=== PATIENT | male | born 2000 | race Caucasian/White ===

== ENCOUNTER 2018-10-26 05:17 | Emergency (ER) | payer OTHER ==
[2018-10-26] MEDS ORDERED: NORMAL SALINE 1000 ML 1,000 ML IV ONE (05:40)
[2018-10-26] MEDS ORDERED: FAMOTIDINE INJ/PF 20 MG/2 ML SDV IV ONE (05:41)
[2018-10-26] MEDS ORDERED: LORAZEPAM INJ 2 MG/1 ML VIAL IV ONE (05:41)
[2018-10-26] MEDS ORDERED: ONDANSETRON HCL INJ/PF 4 MG/2 ML SDV IV ONE (05:41)
[2018-10-26 05:48] LABS: ABSOLUTE BASOPHILS # (AUTO) 0.1 10^3/uL (0.0-0.2); ABSOLUTE EOSINOPHILS # (AUTO) 0.3 10^3/uL (0.0-0.6); ABSOLUTE LYMPHOCYTES (AUTO) 4.3 10^3/uL (0.5-4.7); ABSOLUTE MONOCYTES (AUTO) 1.4 10^3/uL (0.1-1.4); ABSOLUTE NEUT (AUTO) 5.3 10^3/uL (1.7-8.2); EOSINOPHILS % (AUTO) 2.5 % (0-6); HEMATOCRIT 52.9 % (37.9-51.0); HEMOGLOBIN 17.9 g/dL (13.5-17.0); LYMPHOCYTES % (AUTO) 37.6 % (13-45); MEAN CORPUSCULAR HGB CONC 33.7 g/dL (32.0-36.0); MEAN CORPUSCULAR VOLUME 89 fl (80-97); MONOCYTES % (AUTO) 12.1 % (3-13); PLATELET COUNT 282 10^3/uL (150-450); RED BLOOD COUNT 5.96 10^6/uL (4.35-5.55); SEGMENTED NEUTROPHILS % (AUTO) 46.8 % (42-78); TOTAL CELLS COUNTED % (AUTO) 100 %; WHITE BLOOD COUNT 11.3 10^3/uL (4.0-10.5)
--- NOTE | 2018-10-26 05:51 | ER Document Report ---
ED Medical Screen (RME) - General Chief Complaint: Overdose Stated Complaint: DRUG ABUSE Time Seen by Provider: 10/26/18 05:38 Mode of Arrival: Medic Information source: Patient - HPI Notes: 10/26/18 05:48 Otherwise healthy 18-year-old male presents with report that he was smoking methamphetamine and crack cocaine for the last 6 days and then stated he was unable to sleep and so he went and ask for a downer to help him sleep and was given Latosha and Suboxone. Then the patient stated he started having chest pain and vomiting. Patient reports no hematemesis. The patient denies any back pain or difficulty breathing. The patient was actively hallucinating when he came in by EMS with mild tachycardia. Blood pressure normal. On physical exam patient has some hallucinations. He thinks it is 2020. The patient has dry mucous membranes and pupils are slightly constricted but he is hyper alert and will not hold still. Cardiovascular regular rate and rhythm without appreciable murmur gallop or rub rate of 96. Lungs clear to auscultation bilaterally abdomen thin soft nontender. Patient will be given Zofran for nausea Pepcid and Ativan and will have lab studies cardiac eval and a chest x-ray and rehydration with IV fluids. Please see partners note for full continuation and care. Course - Laboratory Result Diagrams: 10/26/18 05:35 10/26/18 05:35
[2018-10-26 06:02] LABS: ALBUMIN 5.7 g/dL (3.5-5.0); ALKALINE PHOSPHATASE 107 U/L (38-126); ANION GAP 16 (5-19); ASPARTATE AMINO TRANSFERASE 25 U/L (17-59); BILIRUBIN,DIRECT 0.4 mg/dL (0.0-0.4); BILIRUBIN,TOTAL 1.4 mg/dL (0.2-1.3); BLOOD UREA NITROGEN 14 mg/dL (7-20); CARBON DIOXIDE 23 mmol/L (22-30); CHLORIDE 102 mmol/L (98-107); CREATINE KINASE 104 U/L (55-170); GLUCOSE 127 mg/dL (75-110); POTASSIUM 4.1 mmol/L (3.6-5.0); TOTAL PROTEIN 9.1 g/dL (6.3-8.2)
[2018-10-26 06:06] LABS: ALCOHOL < 10 mg/dL (NONE DETECTED)
[2018-10-26 06:13] LABS: CREATINE KINASE MB 1.36 ng/mL (<4.55)
[2018-10-26 06:14] LABS: TROPONIN I < 0.012 ng/mL
--- NOTE | 2018-10-26 06:26 | ER Document Report ---
ED General - General Chief Complaint: Overdose Stated Complaint: DRUG ABUSE Time Seen by Provider: 10/26/18 05:38 Mode of Arrival: Medic TRAVEL OUTSIDE OF THE [place] IN LAST 30 DAYS: No - HPI Notes: Patient been using methamphetamines and crack cocaine for the last 6 days connected to sleep took a mile and Suboxone from his friends began having vomiting and chest pains reports the emergency department. He is oriented to person and place but thinks is 20/20. He seems agitated at this time. His vitals are stable. - Related Data Allergies/Adverse Reactions: amoxicillin Allergy (Verified 10/26/18 18:47) ibuprofen [Ibuprofen] Allergy (Verified 10/26/18 18:47) Past Medical History - General Information source: Patient - Social History Smoking Status: Unknown if Ever Smoked Family History: Reviewed & Not Pertinent Review of Systems - Review of Systems Constitutional: See HPI EENT: No symptoms reported Cardiovascular: See HPI Respiratory: No symptoms reported Gastrointestinal: No symptoms reported Genitourinary: No symptoms reported Male Genitourinary: No symptoms reported Musculoskeletal: No symptoms reported Skin: No symptoms reported Hematologic/Lymphatic: No symptoms reported Neurological/Psychological: No symptoms reported Physical Exam - Vital signs Vitals: Resp BP 23 H 139/114 H 10/26/18 05:21 10/26/18 05:21 - General General appearance: Appears well, Anxious - HEENT Head: Normocephalic, Atraumatic Eyes: Other - Constricted, equal Conjunctiva: Normal Extraocular movements intact: Yes - Respiratory Respiratory status: No respiratory distress Chest status: Nontender Breath sounds: Normal - Cardiovascular Rhythm: Regular Heart sounds: Normal auscultation Murmur: No - Abdominal Inspection: Normal Distension: No distension Bowel sounds: Normal - Back Back: Normal - Extremities General upper extremity: Normal inspection General lower extremity: Normal inspection - Neurological Neuro grossly intact: Yes Cognition: Confused Orientation: Disoriented to time Speech: Normal Course - Re-evaluation Re-evalutation: 10/26/18 12:23 Was within normal limits are nonsignificant patient slept for several hours the emergency department was able to ambulate by himself to use the bathroom alert and oriented at this time will be discharged - Vital Signs Vital signs: Temp Pulse Resp BP Pulse Ox 97.9 F 51 L 14 123/71 100 10/26/18 12:46 10/26/18 12:46 10/26/18 12:46 10/26/18 12:46 10/26/18 12:46 - Laboratory Result Diagrams: 10/26/18 05:35 10/26/18 05:35 Laboratory results interpreted by me: 10/26/18 10/26/18 10/26/18 05:35 05:35 12:00 WBC 11.3 H RBC 5.96 H Hgb 17.9 H Hct 52.9 H Glucose 127 H Calcium 11.0 H Total Bilirubin 1.4 H Total Protein 9.1 H Albumin 5.7 H Urine Protein 30 H Urine Ketones TRACE H Urine Urobilinogen 2.0 H Discharge - Discharge Clinical Impression: poly substance abuse Condition: Good Disposition: HOME, SELF-CARE Instructions: Ampetamine Abuse ([facility]), Cocaine Abuse ([facility]), Narcotic Abuse ([facility])
--- NOTE | 2018-10-26 07:14 | RADIOLOGY REPORT (SQ) ---
EXAM DESCRIPTION: XR CHEST 1 VIEW COMPLETED DATE/TME: 10/26/2018 05:39 CLINICAL HISTORY: 18 years Male, chest pain COMPARISON: None. NUMBER OF VIEWS/TECHNIQUE: 1/AP FINDINGS: Adequate lung volume, clear parenchyma, normal cardiac silhouette, and intact bony thorax. IMPRESSION: No acute cardiopulmonary findings.
--- NOTE | 2018-10-26 07:32 | EKG REPORT ---
SEVERITY:- BORDERLINE ECG - SINUS ARRHYTHMIA, RATE [id number] PROBABLE LEFT ATRIAL ABNORMALITY : Confirmed by: Kenny Ribeiro MD 26-Oct-2018 07:31:39
[2018-10-26 12:33] LABS: APPEARANCE,URINE SLIGHTLY-CLOUDY; BILIRUBIN,URINE NEGATIVE (NEGATIVE); GLUCOSE, URINE NEGATIVE (NEGATIVE); KETONES,URINE TRACE mg/dL (NEGATIVE); LEUKOCYTE ESTERASE,URINE NEGATIVE (NEGATIVE); NITRITE,URINE NEGATIVE (NEGATIVE); PROTEIN,URINE 30 mg/dL (NEGATIVE); URINE SPECIFIC GRAVITY 1.031
[2018-10-26 12:39] LABS: COLOR,URINE YELLOW
[2018-10-26 12:48] LABS: URINE BARBITURATES SCREEN NEGATIVE; URINE BENZODIAZEPINES SCREEN NEGATIVE; URINE COCAINE SCREEN UNCONFIRMED POSITIVE; URINE MARIJUANA (THC) SCREEN UNCONFIRMED POSITIVE; URINE METHADONE SCREEN NEGATIVE; URINE PHENCYCLIDINE SCREEN NEGATIVE
[2018-10-26 12:50] VITALS: BP 123/71
== END 2018-10-26 12:51 | disposition home or self-care (01) ==
LOC: EDBD → ER 05:17
DX: F19.10 Other psychoactive substance abuse, uncomplicated (principal); Z88.0 Allergy status to penicillin; Z88.6 Allergy status to analgesic agent; R11.10 Vomiting, unspecified; R07.9 Chest pain, unspecified
CPT/HCPCS: 93005; 99284; 96361; 96374; 96375; 36415; 82553; 80307 ×2; 82550; 83690; 83735; 85025; 80053; 81001; 84484; 71045; 93010; J2060; J2405; J7030; S0028